=== PATIENT | female | born 1960 ===

== ENCOUNTER 2019-09-17 08:14 | Day surgery (SDC) | payer OTHER ==
[~2019-09-17 08:14] MED LIST: FOSAMAX70 MG PO; LIPITOR40 MG PO; ZYRTEC10 M3 PO
== END 2019-09-17 18:30 | disposition home or self-care (01) ==
LOC: CIR.AMB 08:14
DX: S52.531A Colles' fracture of right radius, initial encounter for closed fracture (principal); M93.1 Kienbock's disease of adults
CPT/HCPCS: 25609; 25390; C1776